=== PATIENT | female | born 1975 | race Caucasian/White ===

== ENCOUNTER 2016-07-25 19:59 | Emergency (ER) | payer SELFPAY ==
--- NOTE | ~2016-07-25 | CT71 ---
[facility] A Service of [facility] RADIOLOGY TEXT RESULTS PATIENT: ABAD SHAIKH LOCATION: SED : 71 UNIT #: [id number] AGE: [address]: Denver Maya MD SEX: F ORDER DR: [id number] [address] [address] [id number] E MR#: [id number] Acc #: [id number] NAME: ABAD SHAIKH : 1975 SEX: F STUDY DATE/TIME: 07/25/2016 20:30 UNIT: SED ROOM: STUDY DESCRIPTION: CT Head Wo Contrast Attending Physician: Denver Maya M.D. Ordering Physician: Denver Maya M.D. Primary Care Physician: Tim Polo M.D. MEDICAL IMAGING REPORT This report is preliminary unless electronic signature is present. EXAM Head CT without contrast, 07/25/2016 HISTORY Headache status post fall last night. Diffuse head pain. TECHNIQUE This CT exam was performed with one or more of the following radiation dose reduction techniques: automatic exposure control, adjustment of mA and/or kV according to patient size, and iterative reconstruction. FINDINGS Multiple axial images were obtained from the skull base to vertex without intravenous contrast administration. The ventricles are normal in size, shape and position. There is no midline shift. There is no mass or mass effect, hemorrhage or acute infarct. 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 IMPRESSION No acute intracranial abnormality. Dictated by... Tan Vergara M.D. THIS IS AN ELECTRONICALLY VERIFIED REPORT Tan Vergara M.D. at 07/26/2016 2:18 PM SURINDER/buddy TD: 07/26/2016 04:52 JOB #: [id number] [facility] A Service [facility] RADIOLOGY TEXT RESULTS PATIENT: ABAD SHAIKH LOCATION: SED : 71 UNIT #: [id number] AGE: [address]: Denver Maya MD SEX: F ORDER DR: MEDICAL IMAGING REPORT
--- NOTE | ~2016-07-25 | CR181 ---
[facility] A Service of [facility] & [facility] RADIOLOGY TEXT RESULTS PATIENT: ABAD SHAIKH LOCATION: SED : 71 UNIT #: [id number] AGE: [address]: Denver Maya MD SEX: F ORDER DR: [id number] [address] [address] [id number] E MR#: [id number] Acc #: [id number] NAME: ABAD SHAIKH : 1975 SEX: F STUDY DATE/TIME: 07/25/2016 20:33 UNIT: SED ROOM: STUDY DESCRIPTION: CR Lumbar Spine 2 or 3 Views Attending Physician: Denver Maya M.D. Ordering Physician: Denver Maya M.D. Primary Care Physician: Tim Polo M.D. MEDICAL IMAGING REPORT This report is preliminary unless electronic signature is present. EXAM Lumbar spine 3 views, 07/25/2016 HISTORY Low back pain status post fall last night. FINDINGS 3 views of the lumbar spine demonstrate no fracture. The posterior vertebral body line is intact and there is no anterolisthesis or retrolisthesis. There is marginal osteophyte formation throughout the lumbar spine. The disc spaces are normally maintained. IMPRESSION Minimal degenerative change in the lumbar spine. No acute abnormality. Dictated by... Tan Vergara M.D. THIS IS AN ELECTRONICALLY VERIFIED REPORT Tan Vergara M.D. at 07/26/2016 2:19 PM SURINDER/buddy TD: 07/26/2016 05:03 JOB #: [id number] MEDICAL IMAGING REPORT
--- NOTE | ~2016-07-25 | CR230 ---
[facility] A Service of [facility] & [facility] RADIOLOGY TEXT RESULTS PATIENT: ABAD SHAIKH LOCATION: SED : 71 UNIT #: [id number] AGE: [address]: Denver Maya MD SEX: F ORDER DR: [id number] [place] [id number] E MR#: [id number] Acc #: [id number] NAME: ABAD SHAIKH : 1975 SEX: F STUDY DATE/TIME: 07/25/2016 20:33 UNIT: SED ROOM: STUDY DESCRIPTION: CR Shoulder Min 2 View Rt Attending Physician: Denver Maya M.D. Ordering Physician: Denver Maya M.D. Primary Care Physician: Tim Polo M.D. MEDICAL IMAGING REPORT This report is preliminary unless electronic signature is present. EXAM Right shoulder, 3 views, 07/25/2016 HISTORY Right shoulder pain status post fall on right shoulder last night. FINDINGS AP view with internal and external rotation of the shoulder girdle shows satisfactory relationship of the humeral head and glenoid fossa. The joint space is normal. There is no identifiable fracture or dislocation or bony destructive process about the shoulder girdle anatomy. The acromioclavicular joint is normal. There is no radiopaque foreign body in the region. IMPRESSION Normal shoulder. Dictated by... Tan Vergara M.D. THIS IS AN ELECTRONICALLY VERIFIED REPORT Tan Vergara M.D. at 07/26/2016 2:18 PM KRT/annette TD: 07/26/2016 05:05 JOB #: [id number] MEDICAL IMAGING REPORT
--- NOTE | ~2016-07-25 | CR151 ---
[facility] A Service of [facility] & [facility] RADIOLOGY TEXT RESULTS PATIENT: ABAD SHAIKH LOCATION: SED : 71 UNIT #: [id number] AGE: [address]: Denver Maya MD SEX: F ORDER DR: [id number] [address] [address] [id number] E MR#: [id number] Acc #: [id number] NAME: ABAD SHAIKH : 1975 SEX: F STUDY DATE/TIME: 07/25/2016 20:33 UNIT: SED ROOM: STUDY DESCRIPTION: CR Hip Min 2 Views Rt Attending Physician: Denver Maya M.D. Ordering Physician: Denver Maya M.D. Primary Care Physician: Tim Polo M.D. MEDICAL IMAGING REPORT This report is preliminary unless electronic signature is present. EXAM Right hip 2 views, 07/25/2016 HISTORY Right hip pain status post fall last night. FINDINGS 2 views the right hip demonstrate no fracture. There is degenerative change with mild axial narrowing of the right hip joint. The bones are normally mineralized. There is no soft tissue abnormality. 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 No acute abnormality Dictated by... Tan Vergara M.D. THIS IS AN ELECTRONICALLY VERIFIED REPORT Tan Vergara M.D. at 07/26/2016 2:17 PM SURINDER/buddy TD: 07/26/2016 05:01 JOB #: [id number] MEDICAL IMAGING REPORT
[~2016-07-25 19:59] MED LIST: 12 HOUR COLD R120 MG PO; ACETAMINOPHEN PO; ACETAMINOPHEN650 M3 PO; ALB/IPRATROPIUM/1 E1 INH; ALBUTEROL17 G1 IH; AMITRIPTYLINE H25 MG PO; ASPIRIN81 M2 PO; AUGMENTIN PO; AUGMENTIN875 M1 PO; BACTRIM DS TABL1 TA1 PO; BACTRIM DS TABL1 TA2 PO; BIRTH CONTROL PILL PO; CLARITIN10 M3 PO; CLINDAMYCIN HCL1 GM TD; CLOPIDOGREL75 MG PO; DOCUSATE SODIU100 MG PO; FLONASE16 GM; HYDROCHLOROTHIA25 MG PO; KEFLEX250 M1 PO; LANTUS INSULIN; LANTUS100 U/M1; LANTUS100 U/ML INJ; LANTUS100 U/ML SQ; LANTUS100 U/ML SUBQ; LIPITOR PO; LIPITOR20 MG PO; LISINOPRIL; LISINOPRIL20 MG PO; LOPRESSOR PO; METFORMIN HYDRO25 GM; METOPROLOL TAR25 MG PO; NICOTINE TRANSD21 MG EXT; NICOTINE1 EACH TD; NORFLEX100 M1 PO; NORVASC PO; NOVOLOG100 U/ML; NOVOLOG100 U/ML SUBQ; NOVOLOG100 UNITS/; ORUDIS75 M1 PO; PLAVIX PO; PREDNISONE PO; PROVENTIL17 GM IH; PROVENTIL5 MG/ML IH; SYMBICORT80 INH; VIBRAMYCIN100 M1 PO; VICODIN 5/1 TAB 5/50 PO; VITAMIN B12-FO1 EACH PO; VITAMIN C500 M1 PO; VOLTAREN75 MG PO; ZESTORETIC 20-1 EACH PO; ZESTORETIC PO; ZESTRIL10 MG PO; ZESTRIL30 MG PO; [UNRECOGNIZED DRUG - OTHER]
[2016-07-25] MEDS ORDERED: NEURONTIN PO (20:01)
[2016-07-25] MEDS ORDERED: PRINIVIL10 MG PO (20:01)
[2016-07-25] MEDS ORDERED: METOPROLOL SUCC25 MG PO (20:01)
[2016-07-25] MEDS ORDERED: LAMICTAL100 MG PO (20:02)
[2016-07-25] MEDS ORDERED: LIPITOR80 MG PO (20:02)
[2016-07-25] MEDS ORDERED: MODAFINIL100 MG PO (20:02)
[2016-07-25] MEDS ORDERED: NOVOLOG100 U/M2 (20:03)
[2016-07-25] MEDS ORDERED: LANTUS100 U/ML (20:03)
== END 2016-07-25 21:54 | disposition home or self-care (01) ==
LOC: SED 19:59
DX: S06.0X9A Concussion with loss of consciousness of unspecified duration, initial encounter (principal); S39.012A Strain of muscle, fascia and tendon of lower back, initial encounter; S70.01XA Contusion of right hip, initial encounter; S40.011A Contusion of right shoulder, initial encounter; F17.200 Nicotine dependence, unspecified, uncomplicated; E11.9 Type 2 diabetes mellitus without complications; Z86.73 Personal history of transient ischemic attack (TIA), and cerebral infarction without residual deficits; W01.0XXA Fall on same level from slipping, tripping and stumbling without subsequent striking against object, initial encounter; Y92.9 Unspecified place or not applicable
CPT/HCPCS: 70450; 72100; 73030; 73502; 99284